=== PATIENT | female | born 1960 | race Caucasian/White ===

== ENCOUNTER 2017-07-21 11:35 | Emergency (ER) | payer OTHER, SELFPAY ==
[2017-07-21 11:52] VITALS: BMI 30.4
[2017-07-21 11:55] VITALS: RESP 20
[2017-07-21] MEDS ORDERED: Sodium Chloride 0.9% 1,000 ML IV ONE ×2 (12:28→14:34)
[2017-07-21] MEDS ORDERED: Sodium Chloride 0.9% 1,000 ML ONE ×2 (12:34→14:43)
--- NOTE | 2017-07-21 12:50 | RAD ---
HISTORY: abd pain COMPARISON: Chest x-ray performed 05/03/16 TECHNIQUE: Chest, one view. FINDINGS: LUNGS: Left basilar atelectasis/infiltrate. Please note that chest x-ray has limited sensitivity for the detection of pulmonary masses. PLEURA: No significant pleural effusion identified. No definite pneumothorax . CARDIOVASCULAR: Heart size appears within normal limits. OSSEOUS STRUCTURES: Degenerative changes of the spine. VISUALIZED UPPER ABDOMEN: Unremarkable. OTHER FINDINGS: None. IMPRESSION: Mild left basilar atelectasis/infiltrate.
[2017-07-21 13:17] LABS: BASO % 0.3 % (0.0-2.0); EOS # 0.2 K/uL (0.0-0.7); EOS % 2.8 % (0.0-4.0); HEMOGLOBIN 14.4 g/dL (11.0-16.0); LYMPH # 1.9 K/uL (1.0-4.3); MEAN CORPUSCULAR HEMOGLOBIN 30.9 pg (27.0-31.0); MEAN CORPUSCULAR HGB CONC 34.3 g/dL (33.0-37.0); MEAN PLATELET VOLUME 10.5 fL (7.2-11.7); MONO # 0.3 K/uL (0.0-0.8); MONO % 6.4 % (0.0-10.0); NEUT % 55.5 % (50.0-75.0); RBC 4.65 Mil/uL (3.80-5.20); WHITE BLOOD COUNT 5.4 K/uL (4.8-10.8)
[2017-07-21 13:34] LABS: SQUAMOUS EPITHIAL < 1 /hpf (0-5); URINE BILIRUBIN NEGATIVE (NEGATIVE); URINE BLOOD NEGATIVE (NEGATIVE); URINE CLARITY Clear (Clear); URINE COLOR Straw (YELLOW); URINE GLUCOSE (UA) 3+ mg/dL (Normal); URINE LEUKOCYTE ESTERASE NEG Leu/uL (Negative); URINE NITRATE NEGATIVE (NEGATIVE); URINE PROTEIN NEGATIVE (NEGATIVE); URINE UROBILINOGEN NORMAL mg/dL (0.2-1.0)
--- NOTE | 2017-07-21 13:34 | C.PDOC ---
History Of Present Illness 56-year-old female, presents to the emergency department with complaints of high blood sugar. Patient states she had routine labs drawn at clinic yesterday , and while she was at work today, her doctor called her and notified her to come to the ER for high blood sugar. Patient denies any nausea/vomiting, abdominal pain, dizziness, headaches, chest pain, symptoms, shortness of breath or any other associated symptoms. No other complaints at this time. Time Seen by Provider: 07/21/17 12:28 Chief Complaint (Nursing): High Blood Sugar History Per: Patient History/Exam Limitations: no limitations Current Symptoms Are (Timing): Better Past Medical History Reviewed: Historical Data, Nursing Documentation, Vital Signs Vital Signs: Last Vital Signs Temp 98.7 F 07/21/17 17:34 Pulse 66 07/21/17 17:34 Resp 20 07/21/17 17:34 BP 116/80 07/21/17 17:34 Pulse Ox 98 07/21/17 17:34 Surgical History: Cholecystectomy Family History: States: No Known Family Hx - Social History Hx Alcohol Use: No Hx Substance Use: No - Immunization History Hx Tetanus Toxoid Vaccination: No Hx Influenza Vaccination: No Hx Pneumococcal Vaccination: No Review Of Systems Except As Marked, All Systems Reviewed And Found Negative. Constitutional: Negative for: Fever, Chills ENT: Negative for: Throat Pain Cardiovascular: Negative for: Chest Pain Respiratory: Negative for: Cough, Shortness of Breath Gastrointestinal: Negative for: Nausea, Vomiting, Abdominal Pain, Diarrhea Musculoskeletal: Negative for: Back Pain Neurological: Negative for: Weakness, Numbness, Headache, Dizziness Physical Exam - Physical Exam Appears: Non-toxic, No Acute Distress Skin: Normal Color, Warm, Dry, No Rash Head: Normacephalic Oral Mucosa: Moist Lips: Normal Appearing Neck: Normal ROM Cardiovascular: Rhythm Regular, No Murmur Respiratory: Normal Breath Sounds, No Accessory Muscle Use Extremity: Normal ROM Neurological/Psych: Oriented x3, Normal Speech ED Course And Treatment - Laboratory Results Result Diagrams: 07/21/17 13:00 07/21/17 13:00 ECG: Interpreted By Me, Viewed By Me Interpretation Of ECG: SR@67/MIN, NAD, T WAVE INVERSION IN III, NO ACUTE ST-T CHANGES O2 Sat by Pulse Oximetry: 95 (RA) Pulse Ox Interpretation: Normal - Radiology CXR: Interpreted by Me, Viewed By Me, Read By Radiologist CXR Interpretation: Yes: Other (MILD LEFT ATELECTASIS). No: COPD Progress Note: On re-evaluation, pt is afebrile, hemodynamicaly stable. Non- toxic. Asymptomatic. Tolerate Po well in ED. PulsEOx 98% RA. ENT: no acute findings. neck: Supple, (-) meningeal signs. Lungs: CTA B/L, BS equal B/L. Abd: benign, (-) guarding, (-) rebound. Neurologicaly intact. CBC- normal, BMP- hyperglycemia, hyponatremia. No evidence of DKA. EKG, CXR review, normal study. Case discussed with and diagnostics, imaging review. Pt received 2L NS, INsulin 6U IV given repeat [id number], pH-normal, no anion gap. agrees on discharges with outpt f/u with PMD, Endo. Results review and discussed with patient. Pt has clinical findings c/w hyperglycemia, new onset of DM. Pt advised on course of ds. Ref. to f/u with PMD in 2 -3 days for re- eavl. return if any worsening or new changes. Disposition Counseled Patient/Family Regarding: Studies Performed, Diagnosis, Need For Followup, Rx Given - Disposition Referrals: [facility] [Outside] Disposition: HOME/ ROUTINE Disposition Time: 17:07 Condition: STABLE Additional Instructions: FOLLOW UP WITH PMD IN 2-3 DAYS FOR RE-EVALUATION. RETURN TO ED IF ANY WORSENING OR NEW CHANGES. Prescriptions: MetFORMIN [glucoPHAGE] 1,000 mg PO BID #20 tab Instructions: Diabetic Hyperglycemia (ED) Forms: [employer] ([place]), Work Excuse Print Language: CZECH - Clinical Impression Clinical Impression: Hyperglycemia, New onset type 2 diabetes mellitus - Scribe Statement The provider has reviewed the documentation as recorded by the Scribe (Ginette Vo) All medical record entries made by the Scribe were at my direction and personally dictated by me. I have reviewed the chart and agree that the record accurately reflects my personal performance of the history, physical exam, medical decision making, and the department course for this patient. I have also personally directed, reviewed, and agree with the discharge instructions and disposition.
[2017-07-21] MEDS ORDERED: (Novolin R) Insulin Human Regular 100 units/ml vial IV ONE (14:22)
[2017-07-21] MEDS ORDERED: (Novolin R) Insulin Human Regular 100 units/ml vial ONE (14:29)
[2017-07-21 14:44] LABS: ALB/GLOB RATIO 1.4 (1.0-2.1); ALBUMIN 4.1 g/dL (3.5-5.0); ALT/SGPT 73 U/L (9-52); AST/SGOT 39 U/L (14-36); BLOOD UREA NITROGEN 17 mg/dL (7-17); GFR AFRICAN-AMERICAN > 60; GFR NON-AFRICAN AMERICAN > 60; LIPASE 257 U/L (23-300)
[2017-07-21 16:55] LABS: VENOUS BLOOD GAS PCO2 27 mmHg (40-60); VENOUS BLOOD GAS PO2 35 mm/Hg (30-55); VENOUS BLOOD PH 7.41 (7.32-7.43)
[2017-07-21 17:35] VITALS: BP 116/80; PULSE 66; TEMP 98.7
[2017-07-22 10:56] VITALS: O2SAT 95
--- NOTE | 2017-07-24 11:39 | CARD ---
APPROVED REPORT EKG Measurement Heart [id number] [id number] <Conclusion> Normal sinus rhythm Normal ECG
== END 2017-07-21 17:35 | disposition home or self-care (01) ==
LOC: C.ER 11:35
DX: E11.65 Type 2 diabetes mellitus with hyperglycemia (principal)
CPT/HCPCS: 71045; 80053; 81001; 82009; 82803; 82948; 83690; 84484; 85025; 87040; 87086; 87181; 96361; 96374; 99285; J7040